=== PATIENT | female | born 1985 | race Caucasian/White ===

== ENCOUNTER 2017-04-13 11:34 | Emergency (ER) | payer OTHER ==
[~2017-04-13] VITALS: Ht 165.1 cm; Wt 88.5 kg
[~2017-04-13 11:34] MED LIST: CALCIUM + D 6001 TAB PO; MULTIVITAMIN1 TAB PO; NEXIUM20 MG PO; NUVARING1 ICR VG; VITAMIN B COMPL1 CAP PO
[2017-04-13 11:39] VITALS: BP 133/87
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
[2017-04-13] MEDS ORDERED: AUGMENTIN 875-1 EACH PO (11:57)
[2017-04-13] MEDS ORDERED: MIRENA1 EACH (12:03)
[2017-04-13] MEDS ORDERED: CLINDAMYCIN HC300 M1 PO (13:58)
== END 2017-04-13 12:19 ==
LOC: ERH 11:34
DX: S81.852A Open bite, left lower leg, initial encounter (principal); W50.3XXA Accidental bite by another person, initial encounter; Y92.9 Unspecified place or not applicable; Y93.9 Activity, unspecified
CPT/HCPCS: 90471; 90714